=== PATIENT | female | born 1950 | race Caucasian/White ===

== ENCOUNTER → 2017-10-23 | Outpatient (CLI) | payer MEDICARE, OTHER ==
[~2017-10-23] MED LIST: IBUPROFEN200 MG PO
== END ==
LOC: LAB SHORT 10:32 → PLD 10:32
DX: D48.5 Neoplasm of uncertain behavior of skin (principal)
CPT/HCPCS: 88305

== ENCOUNTER → 2017-12-20 | Outpatient (CLI) | payer MEDICARE, OTHER | END | disposition home or self-care (01) | LOC: LAB SHORT 11:30 → PLD 11:30 | DX: D22.72 Melanocytic nevi of left lower limb, including hip (principal) | CPT/HCPCS: 88305 ==

== ENCOUNTER 2019-07-07 08:35 | Day surgery (SDC) | payer MEDICARE, OTHER ==
[~2019-07-07] VITALS: Ht 165.1 cm; Wt 78.2 kg
== END 2019-07-07 10:38 | disposition home or self-care (01) ==
LOC: ORSCSDS 08:35
PROVIDERS: Internal Medicine Gastroenterology
PROC: 0DBK8ZX Excision of Ascending Colon, Via Natural or Artificial Opening Endoscopic, Diagnostic (ICD-10-PCS; principal; 2019-07-07 09:45)
DX: Z12.11 Encounter for screening for malignant neoplasm of colon (principal); Z86.010 Personal history of colon polyps; D12.2 Benign neoplasm of ascending colon; K57.30 Diverticulosis of large intestine without perforation or abscess without bleeding; E78.5 Hyperlipidemia, unspecified
CPT/HCPCS: 88305; J2704

== ENCOUNTER 2025-03-03 12:34 | Day surgery (SDC) | payer MEDICARE, OTHER ==
[~2025-03-03] VITALS: Ht 165.1 cm; Wt 77.2 kg
[2025-03-03] MEDS ORDERED: ATOR20 (13:10)
[2025-03-03] MEDS ORDERED: FISH OIL 1,0001 EA10 (13:11)
[2025-03-03 15:01] VITALS: BP 117/71
== END 2025-03-03 15:25 | disposition home or self-care (01) ==
LOC: ORSCSDS 12:34
PROVIDERS: Internal Medicine Gastroenterology
PROC: 0DBN8ZX Excision of Sigmoid Colon, Via Natural or Artificial Opening Endoscopic, Diagnostic (ICD-10-PCS; principal; 2025-03-03 13:45)
PROC: 0DBM8ZX Excision of Descending Colon, Via Natural or Artificial Opening Endoscopic, Diagnostic (ICD-10-PCS; principal; 2025-03-03 13:45)
DX: Z12.11 Encounter for screening for malignant neoplasm of colon (principal); K63.5 Polyp of colon; K64.4 Residual hemorrhoidal skin tags; K57.30 Diverticulosis of large intestine without perforation or abscess without bleeding; Z86.0101 Personal history of adenomatous and serrated colon polyps
CPT/HCPCS: 88305; J2704; J7120

== ENCOUNTER 2025-03-18 06:03 | Day surgery (SDC) | payer MEDICARE, OTHER ==
[~2025-03-18] VITALS: Ht 165.1 cm; Wt 78.8 kg
[~2025-03-18 06:03] MED LIST changes: +ATOR20; +Balanced Salt Epinephrine Irrigation Solution 500 mL IR SCH; +FISH OIL 1,0001 EA10; +Moxifloxacin HCL 0.5 MG/0.1 ML 0.4MLSYR RIGHTEYE SCH; +Ondansetron 4 MG SoluTab MM PRN; +PHENYLEPHRINE\\TROPICAMIDE\\TETRACAINE OPHTHALMIC DILATING SOLN RIGHTEYE PRN; +Povidone-Iodine 450 DROP/30 ML Solution RIGHTEYE SCH; +Tetracaine HCl/Pf 0.5% Opth Soln 4 ml ONE; +Triamcinolone Inj Susp 40 MG / ML 1ML Vial INJ SCH
[2025-03-18] MEDS ORDERED: Triamcinolone Inj Susp 40 MG / ML 1ML Vial ONE (06:31)
--- NOTE | 2025-03-18 06:38 | NUR ---
03/18/25 0638 ANTHONY MERCHANT RESTING ON GURNEY, CALL LIGHT IN REACH, RAILS UP. DENIES NEEDS/QUESTIONS AT THIS TIME. RATES ANXIETY 06/16 AT 0628.
[2025-03-18 08:11] VITALS: BP 115/64
== END 2025-03-18 08:05 | disposition home or self-care (01) ==
LOC: ORSCSDS 06:03
PROVIDERS: Ophthalmology
PROC: 08RJ3JZ Replacement of Right Lens with Synthetic Substitute, Percutaneous Approach (ICD-10-PCS; principal; 2025-03-18 07:30)
DX: H25.811 Combined forms of age-related cataract, right eye (principal)
CPT/HCPCS: A9270; J2003; J3301; V2632

== ENCOUNTER 2025-03-26 06:05 | Day surgery (SDC) | payer MEDICARE, OTHER ==
[~2025-03-26] VITALS: Ht 165.1 cm; Wt 78.6 kg
[~2025-03-26 06:05] MED LIST changes: +Moxifloxacin HCL 0.5 MG/0.1 ML 0.4MLSYR LEFTEYE SCH; -Moxifloxacin HCL 0.5 MG/0.1 ML 0.4MLSYR RIGHTEYE SCH; +PHENYLEPHRINE\\TROPICAMIDE\\TETRACAINE OPHTHALMIC DILATING SOLN LEFTEYE PRN; -PHENYLEPHRINE\\TROPICAMIDE\\TETRACAINE OPHTHALMIC DILATING SOLN RIGHTEYE PRN; +Povidone-Iodine 450 DROP/30 ML Solution LEFTEYE SCH; -Povidone-Iodine 450 DROP/30 ML Solution RIGHTEYE SCH; -Tetracaine HCl/Pf 0.5% Opth Soln 4 ml ONE
[2025-03-26] MEDS ORDERED: Tetracaine HCl/Pf 0.5% Opth Soln 4 ml ONE (06:13)
[2025-03-26] MEDS ORDERED: Povidone-Iodine 450 DROP/30 ML Solution ONE (06:13)
[2025-03-26] MEDS ORDERED: VITAMIN D31250 MC2 PO (06:35)
[2025-03-26] MEDS ORDERED: Triamcinolone Inj Susp 40 MG / ML 1ML Vial ONE (06:45)
--- NOTE | 2025-03-26 07:43 | NUR ---
03/26/25 0743 Tori Castellon 124/71 54 18 100% VSS
[2025-03-26 08:05] VITALS: BP 134/85
[2025-03-26] MEDS ORDERED: Tetracaine HCl 0.5% Opth Soln 15 ml ONE (11:10)
== END 2025-03-26 08:05 | disposition home or self-care (01) ==
LOC: ORSCSDS 06:05
PROVIDERS: Ophthalmology
PROC: 08RK3JZ Replacement of Left Lens with Synthetic Substitute, Percutaneous Approach (ICD-10-PCS; principal; 2025-03-26 07:30)
DX: H25.812 Combined forms of age-related cataract, left eye (principal); Z96.1 Presence of intraocular lens
CPT/HCPCS: J2003; J3301; V2632